=== PATIENT | male | born 1980 | race Caucasian/White ===

== ENCOUNTER 2024-12-22 13:40 | Outpatient (CLI) | payer SELFPAY ==
[2024-12-22 14:40] LABS: Motility Quality Immotile Sperm (Mod-Rapid); Semen Viscosity Normal (Normal); Sperm Motility 0 % (50-90); WBCs,Semen Large
[2024-12-22 14:42] LABS: Sperm Count < 1 mil/mm3 (20-160)
[2024-12-22 15:36] LABS: Sperm Morphology Tail Abnormality (Normal)
[2024-12-22 16:18] LABS: 3Hr Motility Quality Immotile Sperm (Mod-Rapid); 3Hr Sperm Motility 0 % (50-60)
== END 2024-12-22 23:59 | disposition home or self-care (01) ==
LOC: LAB 13:41
PROVIDERS: PCP Family Medicine; Visit Provider Urology
DX: N43.40 Spermatocele of epididymis, unspecified (principal); N45.1 Epididymitis
CPT/HCPCS: 89320